=== PATIENT | male | born 1940 | race African-American/Black ===

== ENCOUNTER 2019-03-22 15:45 | Emergency (ER) | payer OTHER ==
[~2019-03-22] VITALS: Ht 180.3 cm; Wt 86.1 kg
[2019-03-22] MEDS ORDERED: SODIUM CHLORIDE 0.9% 1,000 ML IV ONE (16:25)
[2019-03-22] MEDS ORDERED: KETOROLAC 30MG/ML VIAL IV STA (16:25)
[2019-03-22 17:02] LABS: CHLORIDE 107 mEq/L (98-107)
[2019-03-22 17:03] LABS: BASOPHILS % 0.8 % (0.0-2.0); EOSINOPHILS % 0.7 % (0.0-5.0); HEMATOCRIT. 43.2 % (42.0-52.0); LYMPHOCYTES % 15.8 % (20.0-50.0); MEAN CORPUSCULAR HEMOGLOBIN 30.5 pg (28.0-32.0); MEAN CORPUSCULAR VOLUME 94.2 fL (80.0-94.0); MEAN PLATELET VOLUME 7.9 fl (7.4-10.4); MONOCYTES % 6.3 % (2.0-8.0); NEUTROPHILS % 76.4 % (40.0-76.0); PLATELET 105 x1000/uL (130-400); RED BLOOD CELL COUNT 4.59 mill/uL (4.7-6.1); RED CELL DISTRIBUTION WIDTH 20.5 % (11.6-14.6)
[2019-03-22 17:18] LABS: INR 1.4; PARTIAL THROMBOPLASTIN TIME 38.8 sec (23.4-31.0); PROTHROMBIN TIME 13.7 sec (9.6-11.0)
[2019-03-22] MEDS ORDERED: HYDRALAZINE 20MG/ML VIAL IV ONE (18:30)
[2019-03-22] MEDS ORDERED: CLONIDINE 0.1MG TABLET PO ONE (20:45)
[2019-03-22 22:15] VITALS: BP 154/83
== END 2019-03-22 22:00 | disposition short-term general hospital (02) ==
LOC: ER 15:45 → CANBEDREQ 23:21
DX: R51 Headache (principal); R41.0 Disorientation, unspecified; N28.9 Disorder of kidney and ureter, unspecified; R94.31 Abnormal electrocardiogram [ECG] [EKG]; V49.49XA Driver injured in collision with other motor vehicles in traffic accident, initial encounter; Y93.89 Activity, other specified; Y92.89 Other specified places as the place of occurrence of the external cause; Y99.8 Other external cause status; E11.9 Type 2 diabetes mellitus without complications; I10 Essential (primary) hypertension; Z98.890 Other specified postprocedural states
CPT/HCPCS: 36415; 70450; 71045; 80053; 82962; 83880; 84484; 85025; 85610; 85730; 93005; 96374; 96375; 99285; J0360; J1885; J7030